=== PATIENT | female | born 1965 | race Caucasian/White ===

== ENCOUNTER 2019-03-08 07:37 | Emergency (ER) | payer SELFPAY ==
[~2019-03-08] VITALS: Ht 165.1 cm; Wt 81.1 kg
[2019-03-08 07:45] VITALS: BP 124/80; PULSE 84; RESP 18; Ht 165.1 cm; Wt 81.1 kg
[2019-03-08] MEDS ORDERED: SILVER NITRATE SWAB TOP ONE (11:30)
--- NOTE | 2019-03-16 17:59 | ERD ---
ER Documentation Chief Complaint Chief Complaint RIGHT EYELID BLEEDING ONSET A WEEK AGO.NO VISION CHANGES. HPI 53-year-old female patient with no significant past medical history presents ED complaining of bleeding from her right eyelid. Patient reports that she does not wear glasses contacts. States that she accidently scratched her eyelid. Reports that she went to the frame maker and she was diagnosed with a capillary hemangioma. States that they drained it, was referred to a plastic surgeon who specializes in eyelids. Denies any eye pain, vision loss, nausea, vomiting, eye injuries, headache, dizziness. ROS All systems reviewed and are negative except as per history of present illness. Allergies Allergies: Coded Allergies: No Known Allergy (Unverified , 03/08/19) PMhx/Soc Medical and Surgical Hx: pt denies Medical Hx History of Surgery: Yes (left arm sx, left leg fracture&repair) Anesthesia Reaction: No Hx Alcohol Use: Yes (a beer a day) Hx Substance Use: Yes (marijuana) Hx Tobacco Use: Yes Smoking Status: Current some day smoker FmHx Family History: No diabetes, No coronary disease Physical Exam Vitals Temp 98.2 Pulse 84 Resp 18 SBP 124 DBP 80 O2 Sat 96 Physical Exam Const: [id number]-quz-[id number], well-nourished. In no acute distress. Head: Atraumatic, normocephalic Eyes: Normal Conjunctiva without injection. No purulent discharge. PERRLA. EOMI. Bleeding capillary hemangioma on right upper eyelid. ENT: Normal external ear. Ear canal without erythema. Tympanic membrane pearly rodriguez without effusion or bulging. Nasal canal clear with normal turbinates. Moist oropharynx without tonsillar exudates. Non-erythematous pharynx. Uvula mi dline. No drooling. No trismus. Neck: No cervical midline tenderness. Full range of motion. No meningismus. No cervical lymphadenopathy. No JVD. Resp: Clear to auscultation bilaterally. No wheezing, rhonchi, rales, or crackles. No accessory muscle use. No retractions. Cardio: Regular rate and rhythm. No murmurs, rubs or gallops. Abd: Soft, non tender, non distended. Normal bowel sounds. No palpable masses. No rebound tenderness. No guarding. Negative McBurney's Point. Negative Trent's Sign. Skin: Normal skin turgor. No petechiae or rashes Back: No midline tenderness. No CVA tenderness. Ext: No cyanosis, or edema. Distal pulses intact bilaterally. Neur: Awake and alert. Normal gait. Normal coordination. Cranial Nerves II- VII intact. Normal finger to nose. Muscle strength 5/5. Sensation intact. Psych: Normal Mood and Affect Results 24 hrs Current Medications Medications Dose Sig/Love Start Time Status Last (Trade) Ordered Route PRN Stop Time Admin Dose Reason Admin Silver 2 stick ONCE ONCE 03/08/19 DC Nitrate TOP 11:30 (Silver 03/08/19 11:31 Nitrate Swabs) Procedures/MDM 53-year-old female patient with no significant past medical history presents to the ED with a capillary hemangioma on her right eyelid that she accidentally scratched when she was showering. Patient is afebrile and nontoxic-appearing. Different methods used to stop the bleeding. There is success with silver nitrate swabs. Low suspicion for anaphylaxis, scabies, SJS/TEN, TSS, Lyme's Disease, syphilis, RMSF, shingles, disseminated gonorrhea chlamydia, DIC, TTP, ITP, erythema multiforme, sepsis, cellulitis, necrotizing fasciitis, gangrene, meningococcemia, allergic contact dermatitis, urticaria, eczema, tinea infection, or other emergent conditions. Patient's ocular symptoms have stabilized while they have been evaluated in the department and are appropriate for outpatient work up. Low suspicion for ruptured globe, retinal detachment, periorbital cellulitis, acute angle closure glaucoma, deep space infection, iritis, traumatic hyphema, conjunctivitis, subconjunctival hemorrhage, corneal abrasion, corneal ulcer, pterygium, hypopyon, blepharitis, hordeolum, chalazion, or other emergent conditions. Strictly instructed patient to follow up with an frame maker within 24 hours. Instructed patient to return to the ED for any worsening symptoms. Patient is hemodynamically stable. Patient's questions were answered. Patient understood and agreed with discharge plan. Dr. Manley also evaluated patient at this time. Diagnosis: Capillary hemangioma of eyelid strict instructions to follow-up with plastic surgeon who specializes in eyelids is recommended to patient as now the bleeding has stabilized. This resource has been given to the frame maker that patient went to as she was also contacted. Instructed patient to return to the ED sooner for any worsening symptoms. Patient's questions were answered. Patient is hemodynamically stable. Patient understood and agreed with discharge plan. Patient discharged stable. Disclaimer: Inadvertent spelling and grammatical errors are likely due to EHR/dictation software use and do not reflect on the overall quality of patient care. Also, please note that the electronic time recorded on this note does not necessarily reflect the actual time of the patient encounter. Departure Diagnosis: Primary Impression: Capillary hemangioma of eyelid Condition: Stable Referrals: Dr. Tevin Holbrook [facility] YOU HAVE RECEIVED A MEDICAL SCREENING EXAM AND THE RESULTS INDICATE THAT YOU DO NOT HAVE A CONDITION THAT REQUIRES URGENT TREATMENT IN THE EMERGENCY DEPARTMENT. FURTHER EVALUATION AND TREATMENT OF YOUR CONDITION CAN WAIT UNTIL YOU ARE SEEN IN YOUR DOCTORS OFFICE WITHIN THE NEXT 1-2 DAYS. IT IS YOUR RESPONSIBILITY TO MAKE AN APPOINTMENT FOR FOLOW-UP CARE. IF YOU HAVE A PRIMARY DOCTOR --you should call your primary doctor and schedule an appointment IF YOU DO NOT HAVE A PRIMARY DOCTOR YOU CAN CALL OUR PHYSICIAN REFERRAL HOTLINE AT IF YOU CAN NOT AFFORD TO SEE A PHYSICIAN YOU CAN CHOSE FROM THE FOLLOWING [facility] [address] [facility]. [facility] [address] [facility] [facility] [address] [facility] [address] [facility] [address] [facility]. [facility]. [address] [facility]. [facility] YOU HAVE RECEIVED A MEDICAL SCREENING EXAM AND THE RESULTS INDICATE THAT YOU DO NOT HAVE A CONDITION THAT REQUIRES URGENT TREATMENT IN THE EMERGENCY DEPARTMENT. FURTHER EVALUATION AND TREATMENT OF YOUR CONDITION CAN WAIT UNTIL YOU ARE SEEN IN YOUR DOCTORS OFFICE WITHIN THE NEXT 1-2 DAYS. IT IS YOUR RESPONSIBILITY TO MAKE AN APPOINTMENT FOR FOLOW-UP CARE. IF YOU HAVE A PRIMARY DOCTOR --you should call your primary doctor and schedule and appointment IF YOU DO NOT HAVE A PRIMARY DOCTOR YOU CAN CALL OUR PHYSICIAN REFERRAL HOTLINE AT . IF YOU CAN NOT AFFORD TO SEE A PHYSICIAN YOU CAN CHOSE FROM THE FOLLOWING [facility] INSTITUTIONS: [facility] [address] [place] [address] [facility] [address] [place] [address] [facility] [address] [place] [address] [facility] Hours: Mon - Fri 9:00 AM - 5:00 PM Additional Instructions: Call Dr. oHlbrook today, ocularplastic surgeon for further care and treatment. See the doctor sooner or return here if your condition worsens before your appointment time. CORNELIUS SAVAGE PA-C March 16, 2019 17:57
== END 2019-03-08 12:39 | disposition home or self-care (01) ==
LOC: FTE 07:37
DX: D18.09 Hemangioma of other sites (principal); F17.210 Nicotine dependence, cigarettes, uncomplicated
CPT/HCPCS: 99282